=== PATIENT | female | born 1945 | race Hispanic/Latino ===

== ENCOUNTER → 2018-09-06 | Outpatient (CLI) | payer OTHER ==
[~2018-09-06] VITALS: Ht 165.1 cm; Wt 71.2 kg
[~2018-09-06] MED LIST: REGADENOSON 0.4 MG/5 ML PF SYG IVP SCH
== END | disposition home or self-care (01) ==
LOC: SHCH 09:19
PROVIDERS: ATTEND Internal Medicine Cardiovascular Disease
DX: Z01.810 Encounter for preprocedural cardiovascular examination (principal); I10 Essential (primary) hypertension; I25.89 Other forms of chronic ischemic heart disease
CPT/HCPCS: 78452; 93017; 96374; A9500 ×2; J2785

== ENCOUNTER → 2018-09-11 | Outpatient (CLI) | payer OTHER | END | disposition home or self-care (01) | LOC: SHCH 16:07 | PROVIDERS: ATTEND Internal Medicine Cardiovascular Disease | DX: I11.9 Hypertensive heart disease without heart failure (principal) | CPT/HCPCS: 93306 ==

== ENCOUNTER 2018-10-02 07:28 | Day surgery (SDC) | payer OTHER ==
[2018-09-26 15:00] VITALS: BP 156/60
[2018-09-26 15:09] LABS: BASOPHILS % (AUTO) 1.1 % (0.0-5.0); EOSINOPHILS % (AUTO) 6.2 % (0.0-8.0); HEMATOCRIT 36.6 % (36-48); LYMPHOCYTES % (AUTO) 27.9 % (21.0-51.0); MEAN CORPUSCULAR HEMOGLOBIN 31.2 pg (27.0-33.0); MEAN CORPUSCULAR HGB CONC 33.2 g/dL (32.0-36.0); MEAN CORPUSCULAR VOLUME 94.1 fL (79-99); MONOCYTES % (AUTO) 7.5 % (3.0-13.0); NEUTROPHILS % (AUTO) 57.3 % (40.0-77.0); PLATELET COUNT (AUTO) 196 K/uL (130-400); RED BLOOD CELL COUNT(AUTO) 3.89 MIL/uL (4.00-5.50); RED CELL DISTRIBUTION WIDTH 13.3 % (11.0-15.5); WHITE BLOOD COUNT (AUTO) 5.1 K/uL (4.8-10.8)
[2018-09-26 15:11] LABS: APPEARANCE,URINE Clear (CLEAR); BILIRUBIN,URINE Negative (NEGATIVE); COLOR,URINE Yellow (YELLOW); GLUCOSE, URINE (UA) Negative (NEGATIVE); KETONES,URINE Negative (NEGATIVE); LEUKOCYTE ESTERASE ,URINE Moderate (NEGATIVE); NITRATE,URINE Negative (NEGATIVE); OCCULT BLOOD,URINE Negative (NEGATIVE); PH,URINE >=9.0 (5.0-8.0); PROTEIN,URINE POS 2+ mg/dL (NEGATIVE); UROBILINOGEN,URINE 0.2 mg/dL (0.2-1.0)
[2018-09-26 15:19] LABS: CREATININE 7.2 mg/dL (0.5-1.5); POTASSIUM 5.6 mmol/L (3.5-5.1)
[2018-09-26 15:20] LABS: INR 0.95 (0.85-1.15); PARTIAL THROMBOPLASTIN TIME 28.1 SEC (26.3-35.5)
--- NOTE | 2018-09-26 15:40 | NUR ---
R[place] ROBLERO OF DR. TERAN TO NOTIFY HIM THAT PT IS ALLERGIC TO IODINE IODINE CONTRAST.HE CALLED BACK AND STATED HE WILL CALL ORDERS TO PHARMACY TO HAVE PT PRE MEDICATE FOR PROCEDURE.
--- NOTE | 2018-09-26 15:46 | NUR ---
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 MR. MAC STATED HE WILL LET HER KNOW.
[2018-09-26 15:55] LABS: RBC,URINE 0-1 /HPF (0-1)
[2018-09-26 15:56] LABS: BACTERIA,URINE Rare /HPF (None Seen); SQUAMOUS EPITHELIAL CELL,UR Rare /HPF (0-2)
--- NOTE | 2018-10-01 11:55 | NUR ---
labs INFORMED OSBALDO CHESETR OF ABNORMAL UA, POTASSIUM AND ON-CALL MEDICATIONS. ORDERS RECEIVED TO REDRAW POTASSIUM ON DAY OF PROCEDURE AND TO GIVE SOLUCORTEF 100MG IV RIGGING SLINGER DAY OF PROCEDURE. PT WAS PRESCRIBED PRE-MEDS FOR HOME.
[~2018-10-02] VITALS: Ht 160 cm; Wt 68.9 kg
[2018-10-02] VITALS (12 sets, daily range): BP systolic 118–158; BP diastolic 45–65
[~2018-10-02 07:28] MED LIST changes: +HYDROCORTISONE SOD SUCCINATE 100 MG/2 ML VIAL IV SCH; -REGADENOSON 0.4 MG/5 ML PF SYG IVP SCH
[2018-10-02] MEDS ORDERED: SODIUM CHLORIDE 0.9% 1000ML 1,000 ML IV ONE (09:13)
[2018-10-02] MEDS ORDERED: IOHEXOL-350 50ML VIAL IV ONE (09:43)
[2018-10-02] MEDS ORDERED: LIDOCAINE HCL 1% 20 ML VIAL ONE (09:43)
[2018-10-02] MEDS ORDERED: IOHEXOL 350 MG/ML 100ML INFUS..BTL IV ONE (09:46)
[2018-10-02] MEDS ORDERED: METHYLPREDNISOLONE SOD SUCC 125MG/2ML VIAL ONE (09:58)
[2018-10-02] MEDS ORDERED: HYDROCORTISONE SOD SUCCINATE 100 MG/2 ML VIAL ONE (10:00)
[2018-10-02] MEDS ORDERED: DiphenhydrAMINE HCL 50 MG/ML VIAL ONE (10:26)
[2018-10-02] MEDS ORDERED: LABETALOL 20 MG/4 ML DISP.SYRIN IV ONE (10:44)
[2018-10-02] MEDS ORDERED: NITROGLYCERIN 4.1 GM SPRAY TL ONE (10:48)
--- NOTE | 2018-10-02 17:20 | NUR ---
CARE RESUMED CARE OF PATIENT FROM NISA FRIED RN. PT LIEING IN BED,NO DISTRESS NOTED. RIGHT GROIN DSTAT DRESSING DRY AND INTACT
--- NOTE | 2018-10-02 18:00 | NUR ---
DC DC INSTRUCTIONS GIVEN AND REVIEWED AGAIN WITH PATIENT /SPOUSE, INSTRUCTED TO CONTINUE HOME MEDS. TO RESUME HER HEMODIALYSIS, PIV REMOVED SITE ASYMPTOMATIC, CATHETER INTACT, SLIGHT BRUSING NOTED TO LEFT HAND.
--- NOTE | 2018-10-02 18:00 | NUR ---
DC PT STATES LAST TIME SHE HAD CONTRAST THEY DID AN EXTRA DAY OF HEMODIALYSIS, PTS NORMAL DIALYSIS DAYS ARE AND SATURDAYS. 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 SHE STATED TO INSTRUCT PATIENT TO CALL HER AT 0800 AM 10-03-18 AND WILL LET HER KNOW IF HD NEEDED OR NOT. PT /SPOUSE INSTRUCTED TO CALL JOSE TOMORROW TO SEE IF HD NEEDED.
--- NOTE | 2018-10-02 18:10 | NUR ---
DC PT DC HOME VIA WC, NO DISTRESS NOTED. DENIED ANY PAIN OR DISCOMFORTS. ACCOMPANIED BY SPOUSE
== END 2018-10-02 18:10 | disposition home or self-care (01) ==
LOC: DAH 07:28
PROVIDERS: ATTEND Internal Medicine Cardiovascular Disease
DX: I25.10 Atherosclerotic heart disease of native coronary artery without angina pectoris (principal); N18.6 End stage renal disease; Z79.899 Other long term (current) drug therapy; I13.11 Hypertensive heart and chronic kidney disease without heart failure, with stage 5 chronic kidney disease, or end stage renal disease; Z99.2 Dependence on renal dialysis; Z88.8 Allergy status to other drugs, medicaments and biological substances; Z88.0 Allergy status to penicillin; Z79.01 Long term (current) use of anticoagulants; E03.9 Hypothyroidism, unspecified; E79.0 Hyperuricemia without signs of inflammatory arthritis and tophaceous disease; I21.09 ST elevation (STEMI) myocardial infarction involving other coronary artery of anterior wall; R07.9 Chest pain, unspecified; I08.3 Combined rheumatic disorders of mitral, aortic and tricuspid valves
CPT/HCPCS: 36415 ×2; 71045; 75630; 80048; 81001; 84132; 85025; 85610; 85730; 93005; 93458; A4606; C1894; J1200; J1644; J1720; J7030; Q9965 ×2; Q9967 ×2; J2930